=== PATIENT | male | born 1965 | race Caucasian/White ===

== ENCOUNTER → 2018-08-08 12:23 | Outpatient (CLI) | payer MEDICARE, BC, SELFPAY ==
--- NOTE | 2018-08-08 | DI.RAD.S_ITS ---
PROCEDURE: XR KNEE RT 3V INDICATIONS: PAIN IN RIGHT KNEE TECHNIQUE: 3 views of the knee were acquired. COMPARISON: None. FINDINGS: Bones: Mild tricompartmental osteoarthritis is seen. No fractures or dislocations. No suspicious bony lesions. Soft tissues: No joint effusion. No suspicious soft tissue calcifications. IMPRESSION: Mild tricompartment osteoarthritis. No right knee fracture or dislocation. Dictated by: Ned Blanco M.D. on 08/08/2018 at 13:37 Approved by: Ned Blanco M.D. on 08/08/2018 at 13:38
== END ==
PROVIDERS: PCP Family Medicine; Visit Provider Family Medicine
DX: M25.561 Pain in right knee (principal); M17.11 Unilateral primary osteoarthritis, right knee
CPT/HCPCS: 73562